=== PATIENT | female | born 1940 | race Caucasian/White ===

== ENCOUNTER 2023-09-04 06:04 | Day surgery (SDC) | payer MEDICARE, BC, SELFPAY ==
[2023-09-04] VITALS (15 sets, daily range): BP systolic 103–147; BP diastolic 64–90; PULSE 62–76; RESP 16–20; TEMP 36.4–37.1; O2SAT 92–96; BMI 17.6
[2023-09-04] MEDS: LACTATED RINGERS 1000 ML 1,000 ML 100 ML IV (06:25)
[2023-09-04] MEDS: SODIUM CHLORIDE 0.9 % (FLUSH) 10 ML SYRINGE IVF (07:00)
[2023-09-04] MEDS: ETHYL CHLORIDE 1 APPLICATION 1 APPLIC TOPICAL (07:00)
--- NOTE | 2023-09-04 07:15 | XR_ITS ---
Patient: FRANCES PINEDA Facility:?[facility] Patient ID:?[id number] Site Patient ID:?[id number]. Site :?1940 Study:?XRay-Hip Left W/ C-ARM-09/04/2023 8:24:06 AM Ordering Physician:?Ismael Omalley Final Report: Indication: LEFT IM NAIL LAG SCREW REMOVAL Technique: Two fluoroscopic images left hip. Fluoroscopic time 20.6 seconds. IMPRESSION: Fluoroscopic guidance for removal of lag screw from the proximal femur. Dictated by Rambo Contreras MD @ 09/04/2023 10:50:27 AM Signed by:?Rambo Contreras MD @09/04/2023 10:50:27 AM (Electronic Signature)
[2023-09-04] MEDS: CEFAZOLIN 2 GM INJ IVP (07:51)
--- NOTE | 2023-09-04 08:10 | PM.ORPRC ---
Procedure Note Date of procedure: 09/04/23 Procedure: PREOPERATIVE DIAGNOSIS: Left hip retained intramedullary nail, with a prominent lag screw and greater trochanteric bursitis POSTOPERATIVE DIAGNOSIS: Left hip retained intramedullary nail, with a prominent lag screw and greater trochanteric bursitis NAME OF OPERATION: Hardware removal deep SURGEON: Ismael Omalley MD DIRECT CHILL CASTING OPERATOR: DOUG Cosme ANESTHESIA: General ESTIMATED BLOOD LOSS: 10 mL COMPLICATIONS: None SPECIMENS: None DRAINS: None PREOPERATIVE ANTIBIOTICS: Ancef 1 gram INDICATIONS: The patient is a 82-year-old who previously sustained an intertrochanteric fracture. This was treated with an intramedullary nail. The tip of the lag screw is sticking out of the lateral cortex of the femur and causing greater trochanteric bursitis. This has been refractory to non operative treatment. Hardware removal was offered. The risks, benefits and expected outcomes were discussed in detail. These included but were not limited to: Infection, bleeding, injury to blood vessel or nerve, venous thromboembolism. All questions were answered to their satisfaction. Use of an advertising assistant manager was necessary for patient positioning and safety, soft tissue retraction and closure, dressing application, and transfer of the patient to and from the hospital bed to the fracture table. PROCEDURE: The patient was placed supine on the fracture table. General anesthesia was administered. The left lower extremity was prepped and draped in the usual sterile fashion. The nail insertion incision was reopened. Blunt dissection was carried to the deep fascia. The fascia was divided in line with the incision. Blunt dissection was taken to the tip of the nail, using the image intensifier to guide us. A curette was used to clean out the top of the nail. We backed up the set screw 2 turns. We then made the incision over the tip of the lag screw subcutaneous dissection was bluntly taken to the lag screw which was fully exposed with the Briseno elevator and a curette. The screwdriver was placed and the lag screw was removed intact. Wounds were irrigated normal saline. They were closed with the 0 Vicryl deep, 3-0 Vicryl in the subQ and 4-0 Monocryl in a subcuticular fashion. The wounds were infiltrated with Marcaine, without epinephrine prior to closure. A dressing was applied. Sponge and needle counts were correct x2. The patient tolerated the procedure well. There were no apparent complications. They were carefully transferred to the hospital bed and taken to the postanesthesia care unit in satisfactory condition. PLAN: The patient will be discharged to home. She may weightbear as tolerates. Ice and Tylenol as needed for pain. Tomorrow she can restart the Coumadin and aspirin.
[2023-09-04] MEDS: BUPIVACAINE 0.5% 30 ML INJECTION (08:15)
--- NOTE | 2023-09-04 08:44 | P.ANES_ITS ---
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
--- NOTE | 2023-09-04 09:14 | SUR.PHASEI ---
patient meets pacu d/c criteria
[2023-09-04] MEDS: ACETAMINOPHEN 500 MG TABLET 1000 MG PO (10:22)
--- NOTE | 2023-09-04 10:24 | SUR.PHASEII ---
pt shifting weight in bed, grimaces and states ouch pt states pain is 10/10. Sitting in bed eating crackers and drinking coffee. Tylenol given
--- NOTE | 2023-09-04 10:37 | W.ANESCHARGE ---
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
--- NOTE | 2023-09-04 10:43 | SUR.PHASEII ---
pt wheelchair to bathroom
== END 2023-09-04 11:21 | disposition home or self-care (01) ==
PROVIDERS: PCP Internal Medicine; Visit Provider Orthopaedic Surgery
PROC: (CPT 27245; principal; 2023-09-04 07:15)
DX: Z47.2 Encounter for removal of internal fixation device (principal); M70.62 Trochanteric bursitis, left hip
CPT/HCPCS: 20680; 01210; 36415; 73502; 76000; 86850; 86900; 86901; 99100; A9270; J0665; J0690; J1100; J2250; J2371; J2405; J2704; J3010; J3490; J7120

== ENCOUNTER 2023-09-10 16:00 | Inpatient (IN) | payer MEDICARE, BC, SELFPAY ==
--- NOTE | 2023-09-10 16:45 | US_ITS ---
Patient: FRANCES PINEDA Facility:?[facility] Patient ID:?[id number] Site Patient ID:?[id number]. Site :?1940 Study:?US-Extremity Left LEV LT-09/10/2023 6:03:26 PM Ordering Physician:GRABIEL PEARSON M.D. Final Report: INDICATION: Post op pain. COMPARISON: None. TECHNIQUE: A compression venous ultrasound exam was performed of the left lower extremity using milan-scale imaging, color Doppler, and spectral Doppler analysis. FINDINGS: Sonographic imaging of the left lower extremity demonstrates normal compressibility and color Doppler venous blood flow within the common femoral, femoral, deep femoral, and proximal greater saphenous veins. At a lower level the popliteal, peroneal, and posterior tibial veins also show normal compressibility and color Doppler venous blood flow. Limited imaging of the contralateral groin demonstrates a normal spectral waveform and color Doppler venous blood flow within the right common femoral vein. IMPRESSION: Negative for acute DVT in the left lower extremity. Dictated by Brittany West MD @ 09/10/2023 6:28:25 PM Signed by:?Brittany West MD @09/10/2023 6:28:25 PM (Electronic Signature)
--- NOTE | 2023-09-10 16:45 | CT_ITS ---
Patient: FRANCES PINEDA Facility:?[facility] Patient ID:?[id number] Site Patient ID:?[id number] Site :?1940 Study:?CT-Hip Left WITHOUT-09/10/2023 7:13:55 PM Ordering Physician:MICHEL Final Report: INDICATION: Hip pain. TECHNIQUE: CT left hip without contrast. COMPARISON: Same day left hip radiographs. FINDINGS: Diffuse osteopenia. Partially visualized left femoral intramedullary nail with ghost tract of prior interlocking screw. Minimal lucency surrounds the proximal most component of the intramedullary nail, unchanged. No acute displaced fracture or dislocation. Moderate degenerative changes of the left hip. Mild degenerative changes of the left SI joint and pubic symphysis. Partially visualized lower lumbar spondylosis. Mild fatty infiltration of the gluteus musculature. Left hip subcutaneous soft tissue stranding and edema. Partially visualized infrarenal abdominal aortic aneurysm measuring at least 3.8 cm. Severe atherosclerotic calcifications. Status post hysterectomy. IMPRESSION: No acute displaced fracture or dislocation. Please note that all CT scans at this facility use dose modulation, iterative reconstruction, and/or weight-based dosing when appropriate to reduce radiation dose to as low as reasonably achievable. Dictated by Chito Griffith MD @ 09/10/2023 9:18:17 PM Signed by:?Chito Griffith MD @09/10/2023 9:18:17 PM (Electronic Signature)
[2023-09-10 17:01] VITALS: BP 113/65; PULSE 95; RESP 20; TEMP 36.9; O2SAT 93; BMI 16.4
[2023-09-10 17:13] LABS: Basophils Absolute Auto 0.02 K/uL (0.00-0.30); Basophils Percent Auto 0.3 % (0.0-3.0); Eosinophils Absolute Auto 0.12 K/uL (0.00-0.50); Eosinophils Percent Auto 1.7 % (0.0-7.0); Hematocrit 42.8 % (33.0-51.0); Hemoglobin* 13.9 gm/dL (12.0-16.0); Immature Granulocytes Abs Auto 0.05 K/uL (0.00-0.30); Immature Granulocytes Pct Auto 0.7 %; Lymphocytes Percent Auto 18.2 % (20-44); Mean Corpuscular HGB Conc 33 gm/dL (32-36); Mean Corpuscular Hemoglobin 32 pg (26-34); Mean Corpuscular Volume 98 fL (80-100); Monocytes Percent Auto 6.4 % (0.0-11.0); Neutrophils Percent Auto 72.7 % (42.0-72.0); Platelet Count* 182 K/uL (140-440); RDW Coefficient of Variation % 13.8 % (11.5-15.5); Red Blood Count 4.35 m/uL (4.00-5.20); White Blood Count* 7.16 K/uL (4.50-11.00)
[2023-09-10] MEDS: MORPHINE 2 MG/ML inj IVP ×2 (17:17→22:28)
[2023-09-10 17:35] LABS: Chloride* 106 mmol/L (96-114); Sodium* 139 mmol/L (135-149)
[2023-09-10 17:37] LABS: INR 1.99 (0.91-1.10); Prothrombin Time 24.1 Seconds
[2023-09-10 17:38] LABS: Creatinine* 0.8 mg/dL (0.5-1.5); Est. Creatinine Clearance* 36.22; Estimated Glomerular Filt Rate 74 ml/min
[2023-09-10 17:39] LABS: Anion Gap 2 mEq/L (7-15); Blood Urea Nitrogen* 25 mg/dL (7-30); Calcium* 9.7 mg/dL (8.4-10.6); Carbon Dioxide* 31 mmol/L (20-32); Glucose* 96 mg/dL (60-115)
[2023-09-10 17:41] LABS: C Reactive Protein* 0.5 mg/dL (0.5-1.0); Slide Review Reflex No
--- NOTE | 2023-09-10 18:23 | PC.NURSE ---
End of shift note: Patient arrived to unit via direct admit at 1615. Pt to go to OR tomorrow for L) hip procedure. Patient reports significant pain in L) hip and unable to bear weight. Patient is non-ambulatory at this time and uses bedpan for elimination. Regular diet ordered at this time. Morphine given for pain management; pain improved post-medication. IV in L) AC patent and saline locked. Patient's vitals stable. Will continue to implement plan of care.
[2023-09-10 19:00] VITALS: BP 98/79; PULSE 91; RESP 18; TEMP 36.7; O2SAT 92
--- NOTE | 2023-09-10 19:41 | PM.IMHP1 ---
Hospitalist- H&P: HPI History of Present Illness Date Seen: 09/10/23 Chief complaint: Direct Admit Narrative: Anupama Clayotn is a 82 year old female who underwent removal of a left hip intramedullary nail 6 days ago and now has 2 days of fairly severe left hip pain with ambulation. Around 2015 the patient fell and sustained a fracture of her left femur. She had a ORIF with intramedullary zhao and nail fixation. She developed left hip pain recently thought secondary to the tip of the screw extending out of the femur in causing a greater trochanter bursitis. Because of this surgery was done last week to remove that screw. She tolerated the procedure well and was doing fine afterwards until 2 days ago. She now has for severe pain keeping her from being able to bear weight on her left lower extremity. The pain is in the lateral aspect of her hip and thigh. She has not had a new injury. She has not had a fever. Review of Systems Narrative: Patient reports no other recent illness or injury. [facility] Medical History (Updated 09/10/23 @ 19:59 by David Dominguez MD) Coronary artery disease ?I25.10 - Atherosclerotic heart disease of [place] coronary artery without angina pectoris (ICD-10) ST elevation (STEMI) myocardial infarction involving right coronary artery ?I21.11 - ST elevation (STEMI) myocardial infarction involving right coronary artery (ICD-10) PVD (peripheral vascular disease) ?I73.9 - Peripheral vascular disease, unspecified (ICD-10) Raynaud disease ?I73.00 - Raynaud's syndrome without gangrene (ICD-10) Heart failure ?I50.9 - Heart failure, unspecified (ICD-10) A-fib ?I48.91 - Unspecified atrial fibrillation (ICD-10) Aortic stenosis ?I35.0 - Nonrheumatic aortic (valve) stenosis (ICD-10) Tobacco use ?Z72.0 - Tobacco use (ICD-10) Hip fracture, left ?S72.002A - Fracture of unspecified part of neck of left femur, initial encounter for closed fracture (ICD-10) Left hip pain ?M25.552 - Pain in left hip (ICD-10) Blood clotting disorder ?D68.9 - Coagulation defect, unspecified (ICD-10) GERD (gastroesophageal reflux disease) ?K21.9 - Gastro-esophageal reflux disease without esophagitis (ICD-10) Hyperlipidemia ?E78.5 - Hyperlipidemia, unspecified (ICD-10) Hypertension ?I10 - Essential (primary) hypertension (ICD-10) Chest pain ?R07.9 - Chest pain, unspecified (ICD-10) COPD (chronic obstructive pulmonary disease) ?J44.9 - Chronic obstructive pulmonary disease, unspecified (ICD-10) Surgical History S/P hardware removal ?Z98.890 - Other specified postprocedural states (ICD-10) History of lobectomy of lung ?Z90.2 - Acquired absence of lung [part of] (ICD-10) Hx of tonsillectomy ?Z90.89 - Acquired absence of other organs (ICD-10) Hx of coronary artery bypass graft ?Z95.1 - Presence of aortocoronary bypass graft (ICD-10) Hx of bilateral salpingo-oophorectomy ?Z90.79 - Acquired absence of other genital organ(s) (ICD-10) ?Z90.722 - Acquired absence of ovaries, bilateral (ICD-10) Hx of appendectomy ?Z90.49 - Acquired absence of other specified parts of digestive tract (ICD-10) Hx of abdominal hysterectomy ?Z90.710 - Acquired absence of both cervix and uterus (ICD-10) Hx of carotid angioplasty ?Z98.62 - Peripheral vascular angioplasty status (ICD-10) History of hip surgery (05/20/15) ?Z98.890 - Other specified postprocedural states (ICD-10) Family History (Updated 09/10/23 @ 19:47 by David Dominguez MD) Sister Coronary artery disease High cholesterol High blood pressure Diabetes Depression Anxiety Obesity Father High cholesterol High blood pressure Prostate cancer Mother High cholesterol Heart disease Son High blood pressure Social History (Updated 09/10/23 @ 19:49 by David Dominguez MD) Narrative: Patient currently lives in [place] in a town house with no stairs. She lives alone. Her son Milo lives in [place] and is her primary support for medical appointments and other assistance. She occasionally drinks alcohol. She smokes half pack of cigarettes per day What is your current living situation?: I presently have a place to live Problems where you live: no known problems Problems where you live details: N/A In the past 12 months, utilities in danger of being shut off: no In past 12 months, lack of transportation kept you from medical appts, meetings, work, or getting things needed for daily living: no In the past 12 mos, have been you worried that your food would run out before you had money to buy more?: never true In the past 12 mos, the food you bought just didn't last and you didn't have money to buy more?: never true Highest level of school completed/degree received: 11th grade Smoking Status: Current every day smoker What tobacco products do you use: cigarettes Smoking packs per day: 0.5 Smoking cigarettes per day: 10.0 How often do you have a drink containing alcohol: 2-3 times a week Alcohol type: hard liquor How many standard drinks containing alcohol do you have on a typical day: 1 or 2 How often do you have six or more drinks on one occasion: Never AUDIT-C Alcohol total score: 3 Non-prescribed substance use: denies use Caffeine: Yes How often does anyone, including family, friends and others, physically hurt you: never How often does anyone, including family, friends and others, insult or talk down to you: never How often does anyone, including family, friends and others, threaten you with harm: never How often does anyone, including family, friends and others, scream or curse at you: never Are you using contraception or practicing any form of control: No service: No Meds Home Medications and Allergies Home Medications Medication Instructions Recorded Confirmed Type acetaminophen 500 mg tablet 500 mg PO PRN 06/21/22 08/25/23 History albuterol sulfate 2.5 mg/3 mL 2.5 mg inhalation Q4H PRN 06/21/22 09/04/23 History (0.083 %) solution for nebulization biotin 1 mg capsule 1 mg PO DAILY 06/21/22 09/04/23 History calcium carbonate 500 mg-vitamin 1 tab PO DAILY 06/21/22 09/04/23 History D3 3.125 mcg (125 unit) tablet cyclosporine 0.05 % eye drops 1 drp ophthalmic (eye) BID 06/21/22 09/04/23 History diltiazem HCl 180 mg 180 mg PO DAILY 06/21/22 09/04/23 History capsule,extended release 24 hr fluticasone propionate 50 2 intranasal DAILY 06/21/22 08/25/23 History mcg/actuation nasal spray,suspension hydroxyzine pamoate 25 mg capsule 25 mg PO Q8H PRN 06/21/22 09/04/23 History nitroglycerin 0.4 mg sublingual 0.4 mg sublingual Q5M PRN 06/21/22 09/04/23 History tablet sodium chloride 3 % for 3 ml inhalation Q8H 06/21/22 09/04/23 History nebulization warfarin 3 mg tablet 3 mg PO .4XW as needed PRN 06/21/22 09/04/23 History pravastatin 10 mg tablet 10 mg PO QDAY 06/24/22 09/04/23 History aspirin 81 mg chewable tablet 81 mg PO DAILY 09/04/23 09/04/23 History (Aspirin Childrens) Allergies Allergy/AdvReac Type Severity Reaction Status Date / Time ciprofloxacin Allergy Mild Rash Verified 08/25/23 14:46 oxycodone Allergy Unknown Agitated Verified 09/04/23 06:27 Penicillins Allergy Unknown Rash Verified 09/04/23 06:27 Exam Narrative: Exam Narrative: She is alert and appears in no distress. She gives her own history. Eyes normal. Oropharynx normal. Upper teeth are absent. Neck is supple without mass or adenopathy. Respirations with diminished breath sounds but otherwise clear to auscultation without wheezing rales or rhonchi. Cardiovascular: S1, S2, regular rate and rhythm. Abdomen: Bowel sounds active. Abdomen is soft without tenderness or mass. External genitalia normal. Left hip is inspected. She has incisions over the left lateral hip and then several cm lower in the lateral thigh from her recent surgery. She has bruising around these incisions without redness or drainage. These areas are tender to palpation, especially the incision and bruising around the greater trochanter. Const: Vital Signs, click to edit/add: Vital Signs - 24 hr 09/10/23 17:01 09/10/23 17:01 Temperature 98.4 F Pulse Rate [Left P ulse Oximeter] 95 Respiratory Rate 20 20 Blood Pressure [Le ft Arm] 113/65 Pulse Oximetry 93 93 Oxygen Delivery Me thod Room Air Room Air Documenting provider has reviewed patient's vital signs: yes Hospitalist - H&P: Result Labs Labs: Short CBC 09/10/23 Range/Units 17:07 WBC 7.16 (4.50-11.00) K/uL Hgb 13.9 (12.0-16.0) gm/dL Hct 42.8 (33.0-51.0) % Plt Count 182 (140-440) K/uL [facility] 09/10/23 17:07 Sodium 139 Potassium 4.0 Chloride 106 Carbon Dioxide 31 BUN 25 Creatinine 0.8 Glucose 96 Calcium 9.7 Imaging Echo: Radiologist's impression: 03/19/2023 3:13 PM CDT?Transthoracic outreach echo interpretation. Technically challenging echocardiogram, patient with limited mobility due to compression fracture in her back two days ago. LEFT VENTRICLE:Small left ventricular chamber size. Calculated 2-D linear left ventricular ejection fraction 57%. Calculated 2-D monoplane volumetric left ventricular ejection fraction 58%. Regional wall motion abnormalities were present (see wall motion graphics). Indeterminate left ventricular filling pressure. RIGHT VENTRICLE:Mildly enlarged right ventricular chamber size by visual estimate. Normal right ventricular systolic function. Estimated right ventricular systolic pressure 25 mmHg (right atrial pressure of 5 mmHg). ATRIA:Enlarged left atrial size by visual estimate. Enlarged right atrial size by visual estimate. CARDIAC VALVES:Trileaflet aortic valve. Severe calcific aortic valve stenosis. Aortic valve systolic mean Doppler gradient 24 mmHg. Aortic valve area by Doppler 0.88 cm2. Mild aortic valve regurgitation. Thickened mitral valve with leaflet calcification. Mild mitral valve regurgitation. Normal pulmonary valve. Trivial pulmonary valve regurgitation. Normal tricuspid valve. Mild tricuspid valve regurgitation. OTHER ECHO FINDINGS:Normal inferior vena cava size with normal inspiratory collapse (>50%). Abdominal aortic aneurysm (41 mm, ?maximum diameter). ?Correlation with CT abdomen recommended. Normal abdominal aorta Doppler flow pattern. No atrial level shunt by color flow imaging. No intracardiac mass or thrombus, but the left atrial appendage cannot be visualized adequately with transthoracic echo to exclude thrombus in this location. No ?pericardial effusion. For the complete report, see the Order-Level Documents.? Narrative 03/19/2023 3:13 PM CDT?For the complete report, see the Order-Level Documents. Hemodynamics Heart Rate: 100 BPM Blood Pressure: 110 / 70 mmHg ECG: Atrial fibrillation Final Impressions 1. Transthoracic outreach echo interpretation. 2. Severe calcific aortic valve stenosis, systolic mean Doppler gradient 24 mmHg, valve area by Doppler 0.88 cm2 , DVI = 0.23, stroke volume index 35 (suggestive of low flow-low gradient stenosis in the setting of atrial fibrillation). 3. Abdominal aortic aneurysm (41 mm, ?maximum diameter). ?Correlation with CT abdomen recommended. 4. Mildly enlarged right ventricular chamber size, normal systolic function, estimated right ventricular systolic pressure 25 mmHg (right atrial pressure of 5 mmHg). 5. Small left ventricular chamber size, regional wall motion abnormalities were present (see wall motion graphics) (limited apical images), calculated 2-D linear ejection fraction 57%. 6. No ?pericardial effusion. 7. Compared to the report of 09/09/2022 no significant change has occurred. Side by side comparison of images performed. 8. In the absence of a change in clinical status, consensus guidelines recommend a repeat transthoracic echocardiogram in 6-12 months to reevaluate the aortic stenosis. ? Assessment and Plan Assessment and plan (1) Acute pain of left hip: Problem comment: Left hip pain after recent removal of hardware. Dr. Omalley evaluating for fracture or other complication Status: Acute (2) Tobacco use: Problem comment: Nicotine replacement Status: Acute (3) Coronary artery disease: Problem comment: Asymptomatic coronary artery disease Status: Acute (4) A-fib: Problem comment: Chronic anticoagulation. Vitamin K tonight pending possible surgery tomorrow Status: Acute (5) Aortic stenosis: Problem comment: Severe aortic stenosis. See echo report. Not obviously symptomatic. Outpatient cardiology follow-up planned over the next 2 weeks Status: Acute (6) COPD (chronic obstructive pulmonary disease): Problem comment: Clinically stable recently Status: Acute Plan Patient is admitted the hospital for evaluation treatment of acute left hip pain following removal of hardware 6 days ago. Anticipate possible surgery tomorrow to replace hardware. Reverse anticoagulation with vitamin K. NPO with IV fluids pending surgery. IV pain medication. Nonweightbearing. Total Time Spent Total Time Spent: Total time spent is 70 minutes, 50 minutes in coordination of care discussing with patient and other providers ongoing evaluation management of left hip pain and management of heart disease/AFib/aortic stenosis/anticoagulation perioperatively
[2023-09-10] MEDS: PHYTONADIONE (VIT K1) 5 MG in 0.9 % SODIUM CHLORIDE 50 ml 50 ML 100 MG IVPB (19:55)
[2023-09-10] MEDS: SODIUM CHLORIDE 0.9 % (FLUSH) 10 ML SYRINGE 5 ML IVF (22:28)
[2023-09-10] MEDS: LACTATED RINGERS 1000 ML 1,000 ML 75 ML IV (22:29)
[2023-09-10 23:00] VITALS: BP 124/90; PULSE 78; PULSE 91; RESP 18; RESP 20; TEMP 36.5; O2SAT 92
[2023-09-11] VITALS (21 sets, daily range): BP systolic 105–152; BP diastolic 58–94; PULSE 77–112; RESP 12–20; TEMP 36.3–37.2; O2SAT 91–95
[2023-09-11] MEDS: MORPHINE 2 MG/ML inj IVP ×5 (00:28→08:11)
--- NOTE | 2023-09-11 06:08 | PC.NURSE ---
End of shift report [id number]: Pleasant and cooperative with cares, alert and oriented x 4. Pain to left hip reported throughout the shift, patient reports pain as 10/10 with any movement of her LLE or if she is laying too flat or sitting too upright. IV morphine utilized with minimal to moderate relief, patient states inactivity is also beneficial. Declined ice pack stating it was burning her hip. NPO at 0000, IV fluids started for hydration. Bedpan for toileting needs, patient does have a brief underneath her for stress incontinence. Bruising to left hip from procedure last week, incision open to air. Pain to left heel reported, floated heel and patient reported that pain was relieved with floating.
[2023-09-11 06:58] LABS: INR 1.31 (0.91-1.10); Prothrombin Time 17.1 Seconds
[2023-09-11] MEDS: dilTIAZem 180 MG CAP (CD) PO (09:04)
[2023-09-11] MEDS: PRAVASTATIN SODIUM 20 MG TABLET 10 MG PO (09:04)
--- NOTE | 2023-09-11 11:12 | PM.IMPN1 ---
Progress Note: A&P Assessment and plan (1) Acute pain of left hip: Problem details: Left hip pain after recent removal of hardware on 09/04/23 CT without evidence of acute displaced fracture or dislocation Pain management prn NWB LLE (toe touch only) Planned surgical procedure, lag screw, with Dr. Omalley today 09/11/23 (pre op H&P done 08/26) Postoperative management, including pain management, anticoagulation, per Orthopedic surgery Status: Acute (2) A-fib: Problem details: Chronic anticoagulation on warfarin - held preoperatively (last dose 09/08), resume postoperatively per Orthopedic surgery INR 1.99 on admission, currently 1.31 following vitamin K - okay for surgery Continue diltiazem Telemetry Status: Acute (3) Coronary artery disease: Problem details: Asymptomatic coronary artery disease Status: Acute (4) Aortic stenosis: Problem details: Severe aortic stenosis. See echo report. Not obviously symptomatic. Status: Acute (5) COPD (chronic obstructive pulmonary disease): Problem details: Clinically stable recently Pulmonary hygiene perioperatively, incentive spirometry, nebs p.r.n. Status: Acute (6) Tobacco use: Problem details: Nicotine replacement prn. Cessation encouraged Status: Acute Time Spent With Patient Total time spent: Total time spent caring for the patient today was 45 minutes. This includes time spent for the visit reviewing the chart, time spent during the visit, time spent after the visit and documentation and planning in coordination of care. Subjective Date Seen: 09/11/23 Interval history: Patient is doing well this morning. Pain adequately controlled currently though reports she had a rough night with pain. No nausea or vomiting. NPO. Awaiting surgery this afternoon. Exam Narrative: Exam Narrative: PHYSICAL EXAM General: Pleasant, conversant, NAD HEENT: Normocephalic, atraumatic, sclera white, EOMI, oral mucosa moist Cardiovascular: RRR, S1S2. No pitting edema Pulmonary: CTA bilaterally without rhonchi, rales, expiratory wheezes. No dyspnea Neurological: Alert, answering questions appropriately, cranial nerves intact, no focal findings Extremities: No gross joint deformity or swelling. AROMI. Neurovascularly intact Skin: Warm, dry. Const: Vital Signs, click to edit/add: Vital Signs - 24 hr 09/10/23 17:01 09/10/23 17:01 09/10/23 19:00 Temperature 98.4 F 98.0 F Pulse Rate [Left P ulse Oximeter] 95 91 Respiratory Rate 20 20 18 Blood Pressure [Le ft Arm] 113/65 Blood Pressure [Ri ght Arm] 98/79 Pulse Oximetry 93 93 92 Oxygen Delivery Me thod Room Air Room Air Room Air 09/10/23 23:00 09/10/23 23:00 09/11/23 02:37 Temperature 97.7 F 97.3 F L Pulse Rate [Left P ulse Oximeter] 91 78 77 Respiratory Rate 18 20 18 Blood Pressure [Le ft Arm] Blood Pressure [Ri ght Arm] 124/90 H 130/90 H Pulse Oximetry 92 92 Oxygen Delivery Me thod Room Air Room Air 09/11/23 07:20 09/11/23 07:20 Temperature 97.6 F Pulse Rate [Left P ulse Oximeter] 84 84 Respiratory Rate 20 20 Blood Pressure [Le ft Arm] Blood Pressure [Ri ght Arm] 152/94 H Pulse Oximetry 95 Oxygen Delivery Me thod Room Air Labs Labs: Laboratory Results - last 24 hr 09/10/23 09/11/23 17:07 05:55 WBC 7.16 RBC 4.35 Hgb 13.9 Hct 42.8 MCV 98 MCH 32 MCHC 33 RDW Coeff of Melvin 13.8 Plt Count 182 Neut % (Auto) 72.7 H Lymph % (Auto) 18.2 L Grand % (Auto) 6.4 Eos % (Auto) 1.7 Baso % (Auto) 0.3 Neut # (Auto) 5.20 Lymph # (Auto) 1.30 Grand # (Auto) 0.50 Eos # (Auto) 0.12 Baso # (Auto) 0.02 Abs Immat Gran (auto) 0.05 Imm/Tot Granulo (auto) 0.7 INR 1.99 H 1.31 H Sodium 139 Potassium 4.0 Chloride 106 Carbon Dioxide 31 Anion Gap 2 L BUN 25 Creatinine 0.8 Estimated Creat Clear 36.22 Estimated GFR 74 Glucose 96 Calcium 9.7 C-Reactive Protein 0.5
[2023-09-11] MEDS: LACTATED RINGERS 1000 ML 1,000 ML 75 ML IV (11:28)
[2023-09-11] MEDS: ONDANSETRON 2 MG/ML inj 4 MG IVP (12:43)
--- NOTE | 2023-09-11 13:00 | XR_ITS ---
Patient: FRANCES PINEDA Facility:?[facility] Patient ID:?[id number] Site Patient ID:?[id number]. Site :?[id number] Study:?XRay-Hip Left w/ c-arm-09/11/2023 3:03:04 PM Ordering Physician:?Ismael Omalley Final Report: INDICATION: Lag screw exchange TECHNIQUE: Lag screw exchange performed by Dr. Omalley. AP and lateral C-arm spot images were obtained. Fluoroscopy time was 23.1 seconds. COMPARISON: None. FINDINGS: C-arm fluoroscopy for left hip lag screw exchange. IMPRESSION: C-arm fluoroscopy for left hip lag screw exchange. Dictated by David Khan MD @ 09/12/2023 11:57:27 AM Signed by:?David Khan MD @09/12/2023 11:57:27 AM (Electronic Signature)
[2023-09-11] MEDS: BUPIVACAINE 0.25% 30 ML INJECTION (14:50)
--- NOTE | 2023-09-11 14:56 | P.ORPRC_ITS ---
Procedure Note Date of procedure: 09/11/23 Procedure: PREOPERATIVE DIAGNOSIS: Left hip pain after hardware removal POSTOPERATIVE DIAGNOSIS: Left hip pain after hardware removal NAME OF OPERATION: Left hip lag screw placement SURGEON: Ismael Omalley MD BOW MAKING MACHINE OPERATOR: Rose Read PA-C IMPLANTS: Biomet intramedullary hip screw 85 mm lag screw ANESTHESIA: General ESTIMATED BLOOD LOSS: 10 mL COMPLICATIONS: None SPECIMENS: None DRAINS: None PREOPERATIVE ANTIBIOTICS: Ancef 1 gram INDICATIONS: The patient is a 82-year-old who underwent lag screw removal last week. She did well initially, but then started having intractable left hip and thigh pain. Workup has been negative for infection, fracture and DVT. It was felt that the osteoporotic bone was too poor to bear weight without the leg screw in place. Therefore, we elected to take her back to the operating room to replace a shorter lag screw. The risks, benefits and expected outcomes were discussed in detail. These included but were not limited to: Infection, bleeding, injury to blood vessel or nerve, venous thromboembolism. All questions were answered to their satisfaction. Use of an machine operator assistant was necessary for patient positioning and safety, soft tissue retraction and closure, dressing application, and transfer of the patient to and from the hospital bed to the fracture table. PROCEDURE: The patient was placed supine on the fracture table. General anesthesia was administered. The left lower extremity was prepped and draped in the usual sterile fashion. The previously placed incision over the flare of the greater trochanter was utilized. Sharp dissection was taken to the lateral cortex. No purulence was encountered, there was no significant hematoma. The guide pin was placed into the femoral head. A 2nd guide pin was used to measure length. We elected to place an 85 mm lag screw. This was placed and had good purchase in the head and was flush with the lateral cortex. We then opened the nail insertion incision proximally. Again sharp dissection was carried deep. No purulence or hematoma was encountered. The screwdriver was engaged into the top of the nail and the screw was tightened to lock the lag screw statically. The IT band was fenestrated with the guide pin in multiple areas through both of our incisions. The image intensifier was used to confirm the lag screw is well placed. The wounds were irrigated with normal saline. They were infiltrated with 0.25% Marcaine, without epinephrine. They were closed with Vicryl deep and Monocryl in the skin. A dry dressing was applied. Sponge and needle counts were correct x2. The patient tolerated the procedure well. There were no apparent complications. They were carefully transferred to the hospital bed and taken to the postanesthesia care unit in satisfactory condition. PLAN: The patient will be mobilized with physical therapy. They may weightbear as tolerates on the left lower extremity. She may be discharged today if she is able to bear weight.
--- NOTE | 2023-09-11 15:28 | W.ANESCHARGE ---
Anesthesia Charges Start Date/Time Anesthesia Start Date: 09/11/23 Anesthesia Start Time: 13:54 Stop Date/Time Anesthesia Stop Date: 09/11/23 Anesthesia Stop Time: 15:22 Summary Extremes of Age - Over 70 or under 1: MDA
--- NOTE | 2023-09-11 15:50 | W.ANESCHARGE ---
Anesthesia Charges Start Date/Time Anesthesia Start Date: 09/11/23 Anesthesia Start Time: 13:54 Stop Date/Time Anesthesia Stop Date: 09/11/23 Anesthesia Stop Time: 15:23 Summary Extremes of Age - Over 70 or under 1: CERTIFIED MORTICIAN
--- NOTE | 2023-09-11 15:59 | SUR.PHASEI ---
patient met discharge criteria per anesthesia
[2023-09-11] MEDS: ALBUTEROL SULFATE 2.5 MG/3 ML VIAL.NEB NEB (16:17)
[2023-09-11] MEDS: LACTATED RINGERS 1000 ML 1,000 ML 35 ML IV (16:26)
[2023-09-11] MEDS: ACETAMINOPHEN SUSPENSION 1 BOTTLE 650 MG PO ×2 (18:30→23:58)
--- NOTE | 2023-09-11 18:48 | PC.NURSE ---
Pt arrived to floor post-operatively at 1600 from L) hip procedure. Patient A&OX3. Patient continues to have a moderate amount of pain (3-7/10) and intolerance to activity and movement. Patient has not ambulated out of bed yet but has been respositioned. Scheduled Tylenol given. LLE CMS intact; weakness noted. Sensation normal. Patient on 1L of O2 due to low O2 saturations, O2 sats 91-92% (pt has hx of COPD). 2 Mepilex dressing to L) hip C/D/I. No drainage noted. Bruising noted to L) hip. Patient has been tolerating regular diet. Will continue to implement ongoing plan of care.
[2023-09-11] MEDS: NICOTINE 14 mg PATCH 1 PATCH TRANSDERMA (20:32)
[2023-09-12 03:00] VITALS: BP 97/65; PULSE 84; RESP 18; TEMP 36.4; O2SAT 96
[2023-09-12] MEDS: ACETAMINOPHEN SUSPENSION 1 BOTTLE 650 MG PO (05:54)
[2023-09-12] MEDS: LACTATED RINGERS 1000 ML 1,000 ML 35 ML IV (05:56)
--- NOTE | 2023-09-12 06:19 | PC.NURSE ---
19-: pleasant and cooperative. ?Dressing to hip CDI, bruising noted near dressing. Titrated pt to RA. VSS. Tolerating reg diet.
[2023-09-12 06:47] LABS: INR 1.03 (0.91-1.10); Prothrombin Time 14.1 Seconds
--- NOTE | 2023-09-12 07:23 | PM.IMPN1 ---
Exam Const: Vital Signs, click to edit/add: Vital Signs - 24 hr 09/11/23 11:00 09/11/23 15:19 09/11/23 15:25 Temperature 97.4 F L 99 F 99 F Pulse Rate 79 112 H Pulse Rate [Left P ulse Oximeter] 83 Respiratory Rate 16 12 14 Blood Pressure 125/88 118/80 Blood Pressure [Ri ght Arm] 112/82 Pulse Oximetry 95 92 92 Oxygen Delivery Me thod Room Air Room Air Oxygen Flow Rate 09/11/23 15:30 09/11/23 15:35 09/11/23 15:40 Temperature 99 F 99 F 99 F Pulse Rate 91 86 92 Pulse Rate [Left P ulse Oximeter] Respiratory Rate 15 14 16 Blood Pressure 125/90 H 106/73 119/86 Blood Pressure [Ri ght Arm] Pulse Oximetry 92 92 93 Oxygen Delivery Me thod Oxygen Flow Rate 09/11/23 15:45 09/11/23 16:00 09/11/23 16:15 Temperature 98.6 F 97.6 F 97.6 F Pulse Rate 82 78 83 Pulse Rate [Left P ulse Oximeter] Respiratory Rate 15 16 18 Blood Pressure 127/80 122/71 111/78 Blood Pressure [Ri ght Arm] Pulse Oximetry 92 92 92 Oxygen Delivery Me thod Nasal Cannula Nasal Cannula Oxygen Flow Rate 1 1 09/11/23 16:30 09/11/23 16:45 09/11/23 17:00 Temperature 97.6 F 97.3 F L Pulse Rate 86 85 94 Pulse Rate [Left P ulse Oximeter] Respiratory Rate 16 16 Blood Pressure 110/58 L 109/74 113/68 Blood Pressure [Ri ght Arm] Pulse Oximetry 91 91 91 Oxygen Delivery Me thod Nasal Cannula Nasal Cannula Nasal Cannula Oxygen Flow Rate 1 1 1 09/11/23 17:30 09/11/23 18:00 09/11/23 19:00 Temperature 97.7 F 97.8 F Pulse Rate 97 98 102 H Pulse Rate [Left P ulse Oximeter] Respiratory Rate 16 16 16 Blood Pressure 122/68 120/81 105/60 Blood Pressure [Ri ght Arm] Pulse Oximetry 94 92 93 Oxygen Delivery Me thod Nasal Cannula Nasal Cannula Nasal Cannula Oxygen Flow Rate 1 1 1 09/11/23 20:00 09/11/23 21:00 09/11/23 22:46 Temperature 98 F Pulse Rate 82 87 Pulse Rate [Left P ulse Oximeter] Respiratory Rate 16 16 Blood Pressure 120/81 111/71 Blood Pressure [Ri t Arm] Pulse Oximetry 94 Oxygen Delivery Me thod Nasal Cannula Nasal Cannula Oxygen Flow Rate 1 1 09/11/23 23:00 09/11/23 23:00 09/12/23 03:00 Temperature 98.1 F 97.6 F Pulse Rate Pulse Rate [Left P ulse Oximeter] 86 84 Respiratory Rate 16 18 18 Blood Pressure Blood Pressure [Ri t Arm] 113/66 97/65 Pulse Oximetry 94 94 96 Oxygen Delivery Me thod Room Air Room Air Room Air Oxygen Flow Rate Labs Labs: Laboratory Results - last 24 hr 09/12/23 06:23 INR 1.03
[2023-09-12 08:07] VITALS: BP 112/96; PULSE 120; RESP 22; TEMP 37.2; O2SAT 94
[2023-09-12] MEDS: PRAVASTATIN SODIUM 20 MG TABLET 10 MG PO (09:28)
[2023-09-12] MEDS: dilTIAZem 180 MG CAP (CD) PO (09:29)
[2023-09-12] MEDS: SODIUM CHLORIDE 0.9 % (FLUSH) 10 ML SYRINGE 5 ML IVF (09:30)
--- NOTE | 2023-09-12 09:59 | PM.ORPN ---
Subjective Subjective Time Seen by Provider: 10:00 Date Seen: 09/12/23 Principal diagnosis: Day 1 s/p left hip lag screw placement Interval history: Anupama is doing well and resting comfortably in her bed. Reports minimal left hip pain that is well managed with ice and Tylenol. Denies: chest pain, SOB, fever, chills, numbness/tingling distally. Patient reports PT/OT went well this morning. Anupama ambulated with a walker and with minimal discomfort. Patient has a strong appetite. Denies bowel movement postop. Patient is scheduled to f/u with Jaymie Garcia PA-C next Friday (09/16). Ortho Exam Narrative Exam Narrative: Left hip exam: Incision/Dressing: Dressing appears clean and dry. No drainage present. Mepilex intact x 2. Left hip appears moderately swollen but supple with no obvious erythema, fluctuance or excessive warmth. Ecchymosis present. No erythematous streaking. Warmth around the wound is appropriate. Ice is being utilized as needed. CMS: Intact distally with 2+ Dorsalis pedis and Posterior Tibial pulses. Confirmed sensation distally. Intact straight leg raise. Calf: Bilateral calves are supple, with no swelling, pain, tenderness, erythema, discoloration or coolness to the touch. Constitutional: Patient is alert and oriented x3. Patient is in no acute distress and converses without labored breathing. Patient is able to make decisions and demonstrates good insight. Patient is pleasant and cooperative. Affect is full range and appropriate for the circumstances. Const Vital Signs, click to edit/add: Vital Signs - 24 hr 09/11/23 11:00 09/11/23 15:19 09/11/23 15:25 Temperature 97.4 F L 99 F 99 F Pulse Rate 79 112 H Pulse Rate [Left Pulse Oximeter] 83 Respiratory Rate 16 12 14 Blood Pressure 125/88 118/80 Blood Pressure [Right Arm] 112/82 Pulse Oximetry 95 92 92 Oxygen Delivery Method Room Air Room Air Oxygen Flow Rate 09/11/23 15:30 09/11/23 15:35 09/11/23 15:40 Temperature 99 F 99 F 99 F Pulse Rate 91 86 92 Pulse Rate [Left Pulse Oximeter] Respiratory Rate 15 14 16 Blood Pressure 125/90 H 106/73 119/86 Blood Pressure [Right Arm] Pulse Oximetry 92 92 93 Oxygen Delivery Method Oxygen Flow Rate 09/11/23 15:45 09/11/23 16:00 09/11/23 16:15 Temperature 98.6 F 97.6 F 97.6 F Pulse Rate 82 78 83 Pulse Rate [Left Pulse Oximeter] Respiratory Rate 15 16 18 Blood Pressure 127/80 122/71 111/78 Blood Pressure [Right Arm] Pulse Oximetry 92 92 92 Oxygen Delivery Method Nasal Cannula Nasal Cannula Oxygen Flow Rate 1 1 09/11/23 16:30 09/11/23 16:45 09/11/23 17:00 Temperature 97.6 F 97.3 F L Pulse Rate 86 85 94 Pulse Rate [Left Pulse Oximeter] Respiratory Rate 16 16 Blood Pressure 110/58 L 109/74 113/68 Blood Pressure [Right Arm] Pulse Oximetry 91 91 91 Oxygen Delivery Method Nasal Cannula Nasal Cannula Nasal Cannula Oxygen Flow Rate 1 1 1 09/11/23 17:30 09/11/23 18:00 09/11/23 19:00 Temperature 97.7 F 97.8 F Pulse Rate 97 98 102 H Pulse Rate [Left Pulse Oximeter] Respiratory Rate 16 16 16 Blood Pressure 122/68 120/81 105/60 Blood Pressure [Right Arm] Pulse Oximetry 94 92 93 Oxygen Delivery Method Nasal Cannula Nasal Cannula Nasal Cannula Oxygen Flow Rate 1 1 1 09/11/23 20:00 09/11/23 21:00 09/11/23 22:46 Temperature 98 F Pulse Rate 82 87 Pulse Rate [Left Pulse Oximeter] Respiratory Rate 16 16 Blood Pressure 120/81 111/71 Blood Pressure [Right Arm] Pulse Oximetry 94 Oxygen Delivery Method Nasal Cannula Nasal Cannula Oxygen Flow Rate 1 1 09/11/23 23:00 09/11/23 23:00 09/12/23 03:00 Temperature 98.1 F 97.6 F Pulse Rate Pulse Rate [Left Pulse Oximeter] 86 84 Respiratory Rate 16 18 18 Blood Pressure Blood Pressure [Right Arm] 113/66 97/65 Pulse Oximetry 94 94 96 Oxygen Delivery Method Room Air Room Air Room Air Oxygen Flow Rate 09/12/23 08:07 09/12/23 08:07 09/12/23 08:07 Temperature 99 F Pulse Rate Pulse Rate [Left Pulse Oximeter] 120 H 120 H Respiratory Rate 22 22 22 Blood Pressure Blood Pressure [Right Arm] 112/96 H Pulse Oximetry 94 94 Oxygen Delivery Method Room Air Room Air Oxygen Flow Rate Assessment and Plan Assessment and plan (1) Acute pain of left hip: Problem details: Day 1 s/p left hip lag screw placement Status: Acute Plan - PT/OT consults for education and assistance. - Weight bear as tolerated with a walker for assistance. - Dressing is waterproof. May shower. Surgical glue covers the wound. - Prescribed analgesics as needed. Patient is content with current narcotic medications. Minimize narcotic pain medication use; wean off and discontinue as soon as possible. - DVT prophylaxis per Hospitalist. Will resume patient's regular dose of Coumadin today and bridge with Lovenox. - Social consult for discharge planning. - Anticipate patient will be discharged to home this afternoon if the patient remains medically stable, pain is controlled and is safe with ambulation. - Return to clinic in 1 week for a wound check with BROOKS. Mepilex dressing will be removed at this appointment. Remove sooner if dressing becomes saturated. - Return to clinic in [address] Omalley. - Phone Orthopedics with any questions or concerns. [phone]
[2023-09-12] MEDS: ACETAMINOPHEN 325 MG TABLET 650 MG PO (10:40)
[2023-09-12] MEDS: ENOXAPARIN 30 MG/0.3ML INJ SUBCUT (10:59)
[2023-09-12] MEDS: WARFARIN 5 MG TABLET PO (10:59)
--- NOTE | 2023-09-12 11:00 | NUTR.NU ---
RDN attempted to visit with patient, however patient not available. Patient to discharge today.
[2023-09-12 11:07] VITALS: BP 97/54; PULSE 122; RESP 16; TEMP 36.8; O2SAT 93
--- NOTE | 2023-09-12 14:00 | PC.NURSE ---
Discharge: Patient pleasant and cooperative. Patient vitally stable, lungs clear, BS WNL, IV removed, catheter intact. Patient rates left hip pain 7/10, tylenol given x2, mepilex x2 on left hip C/D/I. Patient 1 assist, walker, gb. Patient tolerating regular diet and urinating well. Patient signed belongings sheet and discharge form. Education and practice injection for lovenox were performed. Patient had no further questions regarding discharge. Patient left the floor to home by wheelchair at 1345.
--- NOTE | 2023-09-12 15:57 | P.DS_ITS ---
DS: Providers Provider Date Seen: 09/12/23 Date of admission: 09/10/23 16:42 Primary care physician: Eun Arndt PA-C Admitting Clinician: David Dominguez MD Consults: 09/11/23 16:02 Consult to Occupational Therapy [CONS] Routine Comment: Reason(s) for OT Consult:: Evaluate and Treat Any Restrictions?:: See Comment Comment: evaluate and treat Consult to Physical Therapy [CONS] Routine Comment: Reason(s) for PT Consult:: Evaluate and Treat Any Restrictions?:: See Comment Comment: Gait training, weight bear as tolerates. Attending Physician on discharge: BREONNA Lopez [facility]-C [facility] Date of Discharge: 09/12/23 DS: Diagnosis Discharge Diagnosis (1) Acute pain of left hip: Status: Acute Problem details: Discharged POD#1 s/p left hip lag screw placement. OT/PT consult completed, cleared to return to home, with assistance of family. Orthopedic surgery recommendations: Weight bear as tolerated with a walker for assistance. - Dressing is waterproof. May shower. Surgical glue covers the wound. - Minimize narcotic pain medication use; wean off and discontinue as soon as possible. - resume anticoagulation with home warfarin, will bridge with Lovenox - Return to clinic in 1 week for a wound check with [facility]. Mepilex dressing will be removed at this appointment. Remove sooner if dressing becomes saturated. - Return to clinic in [address] Omalley. (2) A-fib: Status: Acute Problem details: Chronic anticoagulation on warfarin - held preoperatively (last dose 09/08), resume postoperatively per Orthopedic surgery INR 1.99 on admission, received vitamin K Continue diltiazem INR 1.03 on day of discharge. Lovenox 30 mg and 5 mg warfarin given prior to discharge. Will continue to bridge with Lovenox on Friday and Friday. Resume home dose of warfarin over the weekend. INR check on Friday. Discussed with pharmacy (3) Coronary artery disease: Status: Acute Problem details: Asymptomatic coronary artery disease (4) Aortic stenosis: Status: Acute Problem details: Severe aortic stenosis. See echo report. Not obviously symptomatic. (5) COPD (chronic obstructive pulmonary disease): Status: Acute Problem details: Clinically stable recently Pulmonary hygiene perioperatively, incentive spirometry, nebs p.r.n. (6) Tobacco use: Status: Acute Problem details: Nicotine replacement prn. Cessation encouraged DS: Summary Hospital Course Hospital Course: [age] year old female past medical history significant for atrial fibrillation on chronic anticoagulation, CAD, aortic stenosis, COPD was admitted to the medical floor from the orthopedic clinic for surgical repair in setting of acute left hip pain. Course of care and details as noted above. Remainder of chronic medical comorbidities were monitored and managed with home medications. Status at Discharge Functional status at discharge: uses cane/walker Overall status at discharge: patient is progressing back to baseline Time Spent with Patient Time attestation: Total time spent providing and/or coordinating discharge services: Time spent: Greater than 30 minutes Exam Narrative: Exam Narrative: PHYSICAL EXAM General: Pleasant, conversant, NAD Cardiovascular: RRR Pulmonary: No dyspnea Neurological: Alert, answering questions appropriately Skin: Warm, dry. Const: Vital Signs, click to edit/add: Vital Signs - 24 hr 09/11/23 16:00 09/11/23 16:15 09/11/23 16:30 Temperature 97.6 F 97.6 F 97.6 F Pulse Rate 78 83 86 Pulse Rate [Left P ulse Oximeter] Respiratory Rate 16 18 16 Blood Pressure 122/71 111/78 110/58 L Blood Pressure [Ri ght Arm] Pulse Oximetry 92 92 91 Oxygen Delivery Me thod Nasal Cannula Nasal Cannula Nasal Cannula Oxygen Flow Rate 1 1 1 09/11/23 16:45 09/11/23 17:00 09/11/23 17:30 Temperature 97.3 F L 97.7 F Pulse Rate 85 94 97 Pulse Rate [Left P ulse Oximeter] Respiratory Rate 16 16 Blood Pressure 109/74 113/68 122/68 Blood Pressure [Ri ght Arm] Pulse Oximetry 91 91 94 Oxygen Delivery Me thod Nasal Cannula Nasal Cannula Nasal Cannula Oxygen Flow Rate 1 1 1 09/11/23 18:00 09/11/23 19:00 09/11/23 20:00 Temperature 97.8 F Pulse Rate 98 102 H 82 Pulse Rate [Left P ulse Oximeter] Respiratory Rate 16 16 Blood Pressure 120/81 105/60 120/81 Blood Pressure [Ri ght Arm] Pulse Oximetry 92 93 Oxygen Delivery Me thod Nasal Cannula Nasal Cannula Nasal Cannula Oxygen Flow Rate 1 1 1 09/11/23 21:00 09/11/23 22:46 09/11/23 23:00 Temperature 98 F 98.1 F Pulse Rate 87 Pulse Rate [Left P ulse Oximeter] 86 Respiratory Rate 16 16 16 Blood Pressure 111/71 Blood Pressure [Ri ght Arm] 113/66 Pulse Oximetry 94 94 Oxygen Delivery Me thod Nasal Cannula Room Air Oxygen Flow Rate 1 09/11/23 23:00 09/12/23 03:00 09/12/23 08:07 Temperature 97.6 F 99 F Pulse Rate Pulse Rate [Left P ulse Oximeter] 84 120 H Respiratory Rate 18 18 22 Blood Pressure Blood Pressure [Ri ght Arm] 97/65 112/96 H Pulse Oximetry 94 96 94 Oxygen Delivery Me thod Room Air Room Air Room Air Oxygen Flow Rate 09/12/23 08:07 09/12/23 08:07 09/12/23 11:07 Temperature 98.2 F Pulse Rate Pulse Rate [Left P ulse Oximeter] 120 H 122 H Respiratory Rate 22 22 16 Blood Pressure Blood Pressure [Ri ght Arm] 97/54 L Pulse Oximetry 94 93 Oxygen Delivery Me thod Room Air Room Air Oxygen Flow Rate DS: Data Data Completed and Pending Labs on day of discharge: Labs from last 24 hours 09/12/23 06:23 INR 1.03 Discharge Plan Discharge Disposition: Home, Self-Care Date of Admission: 09/10/23 16:42 Attending Provider on Discharge: Aubrie Lloyd Primary Care Provider: Eun Arndt Condition: Improved Anticipated Discharge Date/Time: 09/12/23 11:34 Discharge Medications: New enoxaparin [Lovenox] 30 mg/0.3 mL Syringe 30 mg subcut Q24H 2 Days Qty: 2 0RF sennosides [Senna Lax] 8.6 mg Tablet 8.6 mg PO BID Qty: 30 0RF tramadol 25 mg tablet 25 mg PO Q6H PRN (Reason: pain) Qty: 20 0RF Continued aspirin [Aspirin Childrens] 81 mg tablet,chewable 81 mg PO DAILY cyclosporine 0.05 % drops 1 drp ophthalmic (eye) BID biotin 1 mg capsule 1 mg PO DAILY calcium carbonate-vitamin D3 500 mg-3.125 mcg (125 unit) tablet 1 tab PO DAILY hydroxyzine pamoate 25 mg capsule 25 mg PO Q8H PRN fluticasone propionate 50 mcg/actuation spray,suspension 2 spray intranasal DAILY nitroglycerin 0.4 mg tablet, sublingual 0.4 mg sublingual Q5M PRN warfarin 3 mg tablet 3 mg PO .4XW as needed PRN Patient Comments: 3mg on friday and , 1.5mg all other days acetaminophen 500 mg tablet 500 mg PO Q6H PRN sodium chloride 3 % solution for nebulization 3 ml inhalation Q8H diltiazem HCl 180 mg capsule,extended release 24hr 360 mg PO HS albuterol sulfate 2.5 mg /3 mL (0.083 %) solution for nebulization 2.5 mg inhalation Q4H PRN pravastatin 10 mg tablet 10 mg PO HS Discharge Orders: Discharge Order (Routine); Ordered 09/12/23 Ordered By: Aubrie Lloyd Patient Education: Tramadol (By mouth), Enoxaparin (By injection), Senna (By mouth), Pain Management (GEN) Additional Instructions: Orthopedic surgery recommendations: Weight bear as tolerated with a walker for assistance. Dressing is waterproof. May shower. Surgical glue covers the wound. Prescribed analgesics as needed. Patient is content with current narcotic medications. Minimize narcotic pain medication use; wean off and discontinue as soon as possible. Return to clinic in 1 week for a wound check with [facility]. Mepilex dressing will be removed at this appointment. Remove sooner if dressing becomes saturated. Return to clinic in [address] Omalley You were given 5mg Warfarin and an injection of lovenox today. Resume your home warfarin dose on Friday and Friday. Continue to give yourself a lovenox injection once daily on Friday and Friday. INR Appointment in [place] on Friday09/15/23 1:50 pm. Activity Level: Activity as Tolerated Activity Detail: Per OT/PT recommendations Discharge Diet: Regular Follow Up Appointments: Eun Arndt PA-C [Primary Care Provider] - None () Forms: [facility] Info Instructions
== END 2023-09-12 13:45 | disposition home or self-care (01) | DRG 481 ==
PROVIDERS: Orthopaedic Surgery; Admitting Provider Family Medicine; PCP Internal Medicine; Visit Provider Family Medicine
PROC: 0QH704Z Insertion of Internal Fixation Device into Left Upper Femur, Open Approach (ICD-10-PCS; CPT 27245; principal; 2023-09-11 13:00)
DX: M25.552 Pain in left hip (principal); Z68.1 Body mass index [BMI] 19.9 or less, adult; G89.18 Other acute postprocedural pain; R26.89 Other abnormalities of gait and mobility; M81.8 Other osteoporosis without current pathological fracture; I48.91 Unspecified atrial fibrillation; Z79.01 Long term (current) use of anticoagulants; I35.0 Nonrheumatic aortic (valve) stenosis; J44.9 Chronic obstructive pulmonary disease, unspecified; F17.210 Nicotine dependence, cigarettes, uncomplicated; I25.10 Atherosclerotic heart disease of native coronary artery without angina pectoris; R63.0 Anorexia; I73.00 Raynaud's syndrome without gangrene; I11.0 Hypertensive heart disease with heart failure; I50.9 Heart failure, unspecified; I25.2 Old myocardial infarction; K21.9 Gastro-esophageal reflux disease without esophagitis; E78.5 Hyperlipidemia, unspecified
CPT/HCPCS: 01230; 36415; 73502; 73700; 76000; 80048; 85025; 85610; 86140; 93971; 94640; 97110; 97116; 97161; 97165; 99100; A9270; C1713; J0330; J0665; J1100; J1650; J2270; J2405; J2704; J3010; J3430; J3490; J7120; S4990